=== PATIENT | female | born 1990 | race Caucasian/White ===

== ENCOUNTER 2016-03-02 04:16 | Emergency (ER) | payer OTHER ==
[~2016-03-02] VITALS: Ht 154.9 cm; Wt 54.1 kg
[~2016-03-02 04:16] MED LIST: LAMO25TA2 PO; NITR100 PO
[2016-03-02 04:20] VITALS: BP 127/48; RESP 18; O2SAT 98
--- NOTE | 2016-03-02 04:59 | ED.REPORT ---
HPI-General Illness Date of Service Mar 02, 2016 ED Provider: Dr. Valencia Pt is a 25 y/o female presenting to the ED due to bumps on her tongue onset prior to arrival. Pt noticed bumps on the back of her tongue and possibly the back of her throat. She denies change in cough, fever, sore throat, any pain, tongue swelling. She was concerned she may have throat cancer. She has no other complaints. Nursing Notes Stated Complaint: DIFFICULTY BREATHING Chief Complaint: ENT & Mouth Nursing Notes Reviewed: Yes Allergies: Coded Allergies: No Known Allergies (Verified Allergy, Unknown, 03/02/16) No Active Prescriptions or Reported Meds General Time Seen by MD: 04:59 Chief Complaint Other (Tongue bumps) Hx Obtained From: Patient Arrived By: Walk-in Sudden in Onset?: Yes Onset Occurred: 1 - 4 hours ago Symptom Duration: Since onset Severity: Current: No pain currently Severity: Maximum: No pain Similar Sx Previous: No Past Medical History Past Medical History Bipolar Past Surgical History Denies Smoking History Never Smoker Social History Drug Use: Meth Ambulatory Status Independent Review of Systems + tongue bumps Full Review of Systems Constitutional: Denies: Fever Ears / Nose / Throat: Denies: Sore throat Respiratory: Denies: Shortness of breath Complete sys rev & neg: except as marked. Physical Exam Vital Signs Vital Signs Date Time Temp Pulse Resp B/P Pulse Ox O2 Delivery O2 Flow Rate FiO2 03/02/16 05:11 36.1 81 18 127/48 98 Room Air 03/02/16 04:20 36.1 81 18 127/48 98 Room Air Initial VS: Reviewed, Vital signs normal Head / Eyes: Atraumatic, Normocephalic, PERRL Neck: Full range of motion Respiratory: No respiratory distress Cardiovascular: Intact distal pulses Abdomen / GI: No distention Skin: Warm, Dry, No cyanosis Neurologic: Alert, Oriented, Nonfocal Psychiatric: Mood/affect normal, Behavior normal, Normal thought content General/Constitutional: Awake, Alert, No acute distress, Well appearing, Well developed, Well hydrated, Well nourished, Cooperative, Not toxic appearing ENT: Atraumatic, Airway patent, Mucous membranes moist, Pharynx NL Tongue normal Re-Eval/Medical Decision Med Decision/Clinical Course 25-year-old presents concerned about bumps in her throat. She has visible papillae in her posterior tongue, and a visible epiglottis. Her throat is basically normal. She was reassured. Time of Eval: 05:01 Re-Evaluation/Progress Note: Pt rechecked. Informed pt of plan for treatment. Pt understands and agrees with plan for treatment. F/U and RTER warnings given. All questions addressed. Counseled Regarding: Diagnosis, Need for follow-up, When/why to return to ED Discharge & Departure Primary Impression: Normal exam Disposition: Home Discharge Condition All VS Reviewed: Yes Condition: Stable Additional Instructions: Your throat is normal. The bumps on the tongue are called papillae. They have taste buds in them, and also lymph tissue. They can occasionally get larger and even be a bit tender in the setting of acute infection. The V-shaped structure in the midline behind the tongue is your epiglottis. It is the flap that covers appeared windpipe and prevents food from going down it. Follow-up with your doctor in the office. Referrals: Dg Goldman MD (PCP) Juan Attestation Portions of this note were transcribed by Rob Ortega. I, Dr. Valencia personally performed the history, physical exam and medical decision-making; I reviewed and confirmed the accuracy of the information in the transcribed note. Signed by Juan Bradford, 03/02/16 - [id number] copies to: Dg Goldman MD, Christopher W MD Mar 02, 2016 04:59 ROB ORTEGA Mar 02, 2016 05:03
[2016-03-02 05:11] VITALS: BP 127/48; PULSE 81; RESP 18; O2SAT 98
== END 2016-03-02 05:11 | disposition home or self-care (01) ==
LOC: SED 04:16
DX: F15.10 Other stimulant abuse, uncomplicated (principal); Z03.89 Encounter for observation for other suspected diseases and conditions ruled out

== ENCOUNTER 2016-03-08 22:32 | Emergency (ER) | payer OTHER ==
[~2016-03-08] VITALS: Ht 154.9 cm; Wt 54.5 kg
[2016-03-08 22:35] VITALS: BP 94/59; PULSE 73; RESP 16; O2SAT 100
[2016-03-08] MEDS ORDERED: 0.9% Sodium Chloride 1,000 ML IV ONE (23:15)
--- NOTE | 2016-03-08 23:15 | ED.REPORT ---
HPI-General Illness Date of Service Mar 08, 2016 ED Provider: Chip Villa DO 25 year old female with a history of methamphetamine abuse presents to the ED accompanied by her mother with generalized weakness and SOB onset around 12:00 today after smoking methamphetamine. Associated symptoms include general malaise and dizziness. Patient denies IV drug abuse. Nursing Notes Stated Complaint: LOW PULSE, SLOW RESPIRATION, SWEATY Chief Complaint: General Complaint Nursing Notes Reviewed: Yes Allergies: Coded Allergies: No Known Allergies (Verified Allergy, Unknown, 03/02/16) No Active Prescriptions or Reported Meds General Time Seen by MD: 23:15 Chief Complaint Weakness, Other (Shortness of Breath) Hx Obtained From: Patient Arrived By: Walk-in Sudden in Onset?: No Onset Occurred: 9 - 12 hours ago Symptom Duration: Since onset Associated with: Reports: Dizziness, Shortness of breath Past Medical History Past Medical History Bipolar Past Surgical History Denies Smoking History Never Smoker Social History Alcohol Use: In recovery Drug Use: Meth Ambulatory Status Independent Review of Systems Full Review of Systems Constitutional: Reports: Malaise, Weakness - generalized Respiratory: Reports: Shortness of breath, Denies: Non-productive cough Cardiovascular: Denies: Chest pain GI: Denies: Diarrhea, Nausea, Vomiting Neurologic: Reports: Dizziness, Denies: Change LOC, Headache, Syncope Complete sys rev & neg: except as marked. Physical Exam Vital Signs Vital Signs Date Time Temp Pulse Resp B/P Pulse Ox O2 Delivery O2 Flow Rate FiO2 03/09/16 02:27 36.2 72 15 116/68 100 Room Air 03/08/16 22:35 36.0 73 16 94/59 100 Room Air Initial VS: Reviewed Head / Eyes: Atraumatic, Normocephalic Neck: Supple, Non-tender, Full range of motion Abdomen / GI: Soft, Non-tender, No guarding, No rebound, No distention Extremities: Vascular intact, Neuro intact, No swelling, No tenderness Skin: Warm, Dry, No cyanosis Neurologic: Alert, Oriented, Nonfocal Psychiatric: Mood/affect normal, Behavior normal, Normal thought content General/Constitutional: Awake, Alert, Well appearing, Well developed, Well nourished Alertness: Positive: Somnolent Respiratory / Chest: Breath sounds NL, No respiratory distress, No rales, No rhonchi, No wheezing Cardiovascular: Heart rate NL, Regular rhythm, Heart sounds NL, Cap refill not delayed, Peripheral circulation NL Interpretation & Diagnostics Lab Results Interpretation Result Diagram: 03/08/16 2358 03/08/16 2358 Test 03/08/16 23:58 White Blood Count 7.9th/mm3 (3.8-10.1) Red Blood Count 4.92mil/mm3 (3.90-5.20) Hemoglobin 14.1g/dL (12.0-15.6) Hematocrit 42.3% (35.0-46.0) Mean Corpuscular Volume 86.0fL (81-100) Mean Corpuscular Hemoglobin 28.7pg (27.0-35.0) Mean Corpuscular Hemoglobin Concent 33.3% (32.0-37.0) Red Cell Distribution Width 12.4% (12.3-15.4) Platelet Count 185bil/L (150-400) Neutrophils (%) (Auto) 85.1% (40-74) Lymphocytes (%) (Auto) 7.9% (14-46) Monocytes (%) (Auto) 4.6% (4-12) Eosinophils (%) (Auto) 2.0% (0-5) Basophils (%) (Auto) 0.1% (0-3) Sodium Level 136mEq/L (134-144) Potassium Level 4.1mEq/L (3.5-5.2) Chloride Level 98mEq/L (97-108) Carbon Dioxide Level 25mmol/L (18-29) Blood Urea Nitrogen 17mg/dL (6-20) Creatinine 0.58mg/dL (0.57-1.00) Estimat Glomerular Filtration Rate 179mL/min (>59) Glucose Level 102mg/dL (60-99) Calcium Level 8.9mg/dL (8.5-10.1) Magnesium Level 1.9mg/dL (1.6-2.6) Total Bilirubin 0.7mg/dL (0.0-1.2) Aspartate Amino Transf (AST/SGOT) 13U/L (0-50) Alanine Aminotransferase (ALT/SGPT) 10U/L (0-32) Alkaline Phosphatase 49U/L (25-150) Troponin T 0.010ug/L (0.0-0.011) Pro-B-Type Natriuretic Peptide 12.43pg/mL (0-130) Total Protein 7.3g/dL (6.4-8.4) Albumin 4.2g/dL (3.4-5.0) HCG Beta Subunit 0.500mIU/mL ECG Interpretation ECG Interpretation: Sinus rhythm, rate 83 Incomplete RBBB Unchanged from prior ECG Time: 23:46 Interpreted by: ED physician X-Ray Chest Interpretation Chest Xray Interpretation: Normal. View: Portable, 1 view Interpretation / Wet Read by: Wet read ED physician Re-Eval/Medical Decision Med Decision/Clinical Course Healthy 25-year-old females felt lousy after smoking methamphetamines. She states that she smoked the mouth and then felt short of breath. Since then she has had generalized malaise. Evidently showed a low heart rate at home. I my evaluation her heart rate vitals were normal. Her exam was very benign. She did have dry mucous membranes. Laboratory work was tested and is all very reassuring. EKG was normal. Chest x-ray was normal. Her O2 sat was 100%. She had no chest pain whatsoever. Pulmonary emboli very unlikely. Wells criteria low risk. Per score is 0. D-dimer testing are indicated. After fluids she was ready be discharged home. I encouraged her to abstain from abusing methamphetamines. Source of Hx: Old records Time of Eval: 01:55 Re-Evaluation/Progress Note: Discussed lab and radiology results. Patient is asymptomatic. Her vitals are normal. She is ready to go home. Return precautions given. All other questions addressed. Counseled Regarding: Diagnosis, Lab results, Need for follow-up, When/why to return to ED Discharge & Departure Primary Impression: Methamphetamine abuse Disposition: Home Discharge Condition All VS Reviewed: Yes Condition: Stable Patient Instructions: Methamphetamine Abuse (ED) Additional Instructions: I strongly recommended to abstain from abusing methamphetamines. Do not drive tonight. Drink plenty of liquids. Contact your primary care physician tomorrow for follow-up. Return if you have any problems or any new or worrisome symptoms. Referrals: Dg Goldman MD (PCP) Scribe Attestation Portions of this note were transcribed by Stevie Denis. I, Dr. Villa, personally performed the history, physical exam and medical decision-making; I reviewed and confirmed the accuracy of the information in the transcribed note. Signed by: Juan Valencia. 03/09/2016, 02:00 copies to: Dg Goldman MD, Todd P DO Mar 08, 2016 23:15 STEVIE DENIS Mar 08, 2016 23:18
[2016-03-09 00:19] LABS: BASOPHILS % (AUTO) 0.1 % (0-3); MONOCYTES % (AUTO) 4.6 % (4-12); Mean Corpuscular Hemoglobin 28.7 pg (27.0-35.0); NEUTROPHILS % (AUTO) 85.1 % (40-74); Platelet Count 185 bil/L (150-400)
[2016-03-09 01:04] LABS: Magnesium 1.9 mg/dL (1.6-2.6); TROPONIN T 0.01 ug/L (0.0-0.011)
[2016-03-09] MEDS ORDERED: 0.9% Sodium Chloride 1,000 ML IV ONE (01:20)
[2016-03-09 02:27] VITALS: BP 116/68; PULSE 72; RESP 15; O2SAT 100
--- NOTE | 2016-03-09 07:53 | DRSVH ---
PROCEDURE: X-RAY CHEST ONE VIEW, PORTABLE ([id number]) INDICATIONS: low heart rate TECHNIQUE: One view of the chest was acquired. COMPARISON: None. FINDINGS: Surgical changes and devices: None. Lungs and pleura: No pleural effusions or pneumothorax. Lungs are clear. Mediastinum: Mediastinal contours appear normal. Heart size is normal. Bones and chest wall: No suspicious bony lesions. Overlying soft tissues appear unremarkable. IMPRESSION: No acute cardiac pulmonary disease Dictated by: Connie Bates M.D. on 03/09/2016 at 7:51 Approved by: Connie Bates M.D. on 03/09/2016 at 7:51
== END 2016-03-09 02:32 | disposition home or self-care (01) ==
LOC: SED 22:32
DX: F15.20 Other stimulant dependence, uncomplicated (principal); R53.1 Weakness; R06.02 Shortness of breath
CPT/HCPCS: 36415; 71010; 80053; 83735; 83880; 84484; 84702; 85025; 93005; 96360; 99285; J7030